=== PATIENT | female | born 1960 | race Caucasian/White ===

== ENCOUNTER 2017-12-22 17:40 | Emergency (ER) | payer BC ==
[2017-12-22] MEDS ORDERED: ONDANSETRON HCL IV 4 MG/2 ML VIAL IV ONE (18:10)
[2017-12-22] MEDS ORDERED: 0.9 % SODIUM CHLORIDE 1,000 ML BAG IV ONE (18:10)
[2017-12-22 18:20] LABS: BASO % 0.8 % (0-6); EOS % 1.5 % (0-6); GRAN % 50.8 % (47-80); HEMATOCRIT 39.7 % (35.0-47.0); HEMOGLOBIN 14.1 gm/dl (11.6-16.0); LYMPH % 37.7 % (16-45); MEAN CELL VOLUME 89.4 fl (81-97); MEAN CORPUSCULAR HEMOGLOBIN 31.8 pg (27-33); MEAN CORPUSCULAR HGB CONC 35.5 g/dl (32-36); MEAN PLATELET VOLUME 13.7 fl (7.4-10.4); MONO % 9.2 % (0-9); PLATELET COUNT 136 K/uL (130-400); RED BLOOD COUNT 4.44 M/uL (3.80-5.40); RED CELL DISTRIBUTION WIDTH 18.6 % (11.5-14.5); WHITE BLOOD COUNT W/O DIFF 5.3 K/uL (4.2-12.2)
--- NOTE | 2017-12-22 18:23 | Emergency Department Record ---
History of Present Illness - General Chief complaint: Nausea, Vomiting, Diarrhea Stated complaint: NAUSEA,JAUNDICE Time Seen by Provider: 12/22/17 17:44 Source: Patient Mode of Arrival: Ambulatory Limitations: No limitations - History of Present Illness Initial comments: The patient is here due to not feeling well for about a week. She did have some lab work done by her PCP 9 days ago which did demonstrate marked liver enzyme elevation. Since she has been very nauseated and has had watery diarrhea 3-4 times a day. There is no reported fever, CP, SOB, or vomiting but the patient has had extreme fatigue. She also did fall about 5 days ago accidentally and bang the back of her head on a metal object. Since she has had a moderate MACHUCA. The patient has been on INH for 4 months due to a recent seroconversion of TB. MD complaint: Diarrhea, Nausea Onset/Timin -: Week(s) Description of Diarrhea: Water Severity: Moderate Severity scale (1-10): 7 Quality: Aching Consistency: Constant Improves with: None Worsens with: None Associated Symptoms: Nausea/vomiting - Related Data Home Medications Medication Instructions Recorded Confirmed Last Taken Atorvastatin Calcium 10 mg PO DAILY 12/22/17 12/22/17 Unknown Bupropion HCl [Bupropion Xl] 450 mg PO DAILY 12/22/17 12/22/17 Unknown Carvedilol 50 mg PO DAILY 12/22/17 12/22/17 Unknown Gabapentin [Neurontin] 600 mg PO DAILY 12/22/17 12/22/17 Unknown Hydrocodone/Acetaminophen 5 mg PO Q6H 12/22/17 12/22/17 Unknown [Hydrocodone/Acetaminophen 5mg/325mg] Ibuprofen [Ibu] 800 mg PO Q8H 12/22/17 12/22/17 Unknown Isoniazid 300 mg PO DAILY 12/22/17 12/22/17 Unknown Lorazepam [Ativan] 0.5 mg PO BID 12/22/17 12/22/17 Unknown Secukinumab [Cosentyx Pen (2 Pens)] 150 mg IM WEEKLY 12/22/17 12/22/17 Unknown Spironolactone 25 mg PO DAILY 12/22/17 12/22/17 Unknown Allergies Allergy/AdvReac Type Severity Reaction Status Date / Time No Known Drug Allergies Allergy Verified 12/22/17 17:53 Travel Screening - Travel/Exposure Within Last 30 Days Have you traveled within the last 30 days?: No Review of Systems Constitutional: Denies: Chills, Fever Eyes: Denies: Eye discharge ENT: Denies: Congestion Respiratory: Denies: Cough, Dyspnea Cardiovascular: Denies: Arrhythmia Endocrine: Reports: Fatigue Gastrointestinal: Reports: Diarrhea, Nausea. Denies: Vomiting Genitourinary: Denies: Dysuria Musculoskeletal: Denies: Arthralgia Past Medical History - SOCIAL HISTORY Smoking Status: Current some day smoker Alcohol Use: None Drug Use Detail:: Marijuana - RESPIRATORY Hx Respiratory Disorders: Yes Hx Sleep Apnea: Yes - CARDIOVASCULAR Hx Cardio Disorders: Yes Hx Abnormal EKG: Yes - NEURO Hx Neuro Disorders: No - GI Hx GI Disorders: No - Hx Genitourinary Disorders: No - ENDOCRINE Hx Endocrine Disorders: No - MUSCULOSKELETAL Hx Musculoskeletal Disorders: Yes Hx Arthritis: Yes - PSYCH Hx Psych Problems: No - HEMATOLOGY/ONCOLOGY Hx Hematology/Oncology Disorders: No Family Medical History Any Significant Family History?: No Physical Exam - General General Appearance: Alert, Oriented x3, Cooperative, No acute distress - Head Head exam: Atraumatic, Normocephalic, Normal inspection - Eye Eye exam: Normal appearance, PERRL, EOMI, Scleral icterus - ENT Throat exam: Normal inspection. negative: Tonsillar erythema, Tonsillar exudate - Neck Neck exam: Normal inspection, Full ROM. negative: Tenderness - Respiratory Respiratory exam: Normal lung sounds bilaterally. negative: Respiratory distress - Cardiovascular Cardiovascular Exam: Regular rate, Normal rhythm, Normal heart sounds - GI/Abdominal GI/Abdominal exam: Soft, Normal bowel sounds. negative: Tenderness - Extremities Extremities exam: Normal inspection, Full ROM, Normal capillary refill. negative: Tenderness - Neurological Neurological exam: Alert, Normal gait. negative: Abnormal gait, Motor sensory deficit Course Vital Signs 12/22/17 17:46 Temperature 97.7 F Pulse Rate 52 L Respiratory 20 Rate Blood Pressure 126/77 Pulse Ox 99 - Reevaluation(s) Reevaluation #1: The patient is doing better but is still having a lot of nausea and weakness. Due to the significant liver issues I did recommend admission to a larger hospital and the patient chose [facility]. I did discuss the case with Dr. Gorman and he does accept the patient for a direct admission. 12/22/17 20:45 Medical Decision Making - Data Complexity MDM Data: Labs Ordered and/or Reviewed, X-Ray Ordered and/or Reviewed - Lab Data Result diagrams: 12/22/17 17:58 12/22/17 17:58 - Radiology Data Radiology results: Report reviewed (Head CT: Neg Abd CT: Neg for acute changes. There is a mass at the cervix but that is known to the patient.) Disposition Disposition: Transfer Clinical Impression: Liver disorder due to infection Disposition: Acute Care Hospital Transfer Transfer To: [facility] Reason For Transfer: Liver Accepting Physician: Vita Time Discussed w/Accepting Physician: 20:46 Condition: (2) Stable Forms: Patient Portal Access Time of Disposition: 20:46 Quality - Quality Measures Quality Measures: N/A - Blood Pressure Screening View Details: Yes Does Patient Have Any of the Following: No Blood Pressure Classification: Pre-Hypertensive BP Reading Systolic Measurement: 126 Diastolic Measurement: 77 Screening for High Blood Pressure: < Pre-Hypertensive BP, F/U Documented > [ [id number]] Pre-Hypertensive Follow-up Interventions: Referral to alternative/primary care provider.
[2017-12-22 18:33] LABS: BLOOD UREA NITROGEN 10 mg/dL (6-20); CREATININE 0.5 mg/dL (0.5-0.9); EST GLOMERULAR FILTRATION RATE > 60 mL/min; INR 1.3; PARTIAL THROMBOPLASTIN TIME 30.5 SECONDS (24.5-39.1); PROTHROMBIN TIME (PATIENT) 13.8 SECONDS (9.5-12.1)
[2017-12-22 18:34] LABS: TOTAL PROTEIN 6.9 g/dL (6.6-8.7)
[2017-12-22 18:36] LABS: GLUCOSE,RANDOM 120 mg/dL (74-109)
[2017-12-22 18:39] LABS: ALBUMIN 3.8 g/dL (4.0-5.0); ALKALINE PHOSPHATASE 363 U/L (35-104); BILIRUBIN,DIRECT 4.7 mg/dL (0-0.3); LIPASE 72 U/L (13-60)
[2017-12-22 18:40] LABS: URINE APPEARANCE CLEAR; URINE BILIRUBIN LARGE (NEGATIVE); URINE BLOOD TRACE-I (NEGATIVE); URINE GLUCOSE (UA) NEGATIVE (NEGATIVE); URINE KETONE NEGATIVE (NEGATIVE); URINE LEUKOCYTE ESTERASE NEGATIVE (NEGATIVE); URINE NITRITE NEGATIVE (NEGATIVE); URINE PROTEIN TRACE (NEGATIVE); URINE UROBILINOGEN >=8.0 E.U./dL (0.20 - 1.00)
[2017-12-22 18:42] LABS: URINE COLOR DARK YELLOW
[2017-12-22 18:52] LABS: URINE AMORPHOUS SEDIMENT FEW; URINE BACTERIA FEW; URINE RBC 0 - 2 (NONE SEEN); URINE WBC 0 - 2 (0-2/hpf)
[2017-12-22 18:54] LABS: ALT/SGPT 1340 U/L (<33); AST/SGOT 1251 U/L (10.0-35.0)
[2017-12-22] MEDS ORDERED: ONDANSETRON HCL IV 4 MG/2 ML VIAL IVP ONE (19:41)
[2017-12-22] MEDS ORDERED: MAGNESIUM HYDROXIDE/AL HYDROX 30 ML, LIDOCAINE VISC 2% 200 MG PO ONE ×2 (20:20)
--- NOTE | 2017-12-23 10:33 | CT SCAN REPORT ---
EXAM: CT OF THE HEAD WITHOUT CONTRAST HISTORY: HEADACHE FOR FIVE DAYS. TECHNIQUE: Routine noncontrast CT images of the head were obtained. FINDINGS: The ventricles, basal cisterns, and sulci are of normal size, shape and configuration. No midline shift or mass effect. The tomlinson white differentiation is well maintained throughout both cerebral hemispheres. No evidence for acute ischemia. No intracranial mass or hemorrhage. There is mild scattered paranasal sinus mucosal thickening. IMPRESSION: 1. NO ACUTE INTRACRANIAL ABNORMALITY. 2. MILD SCATTERED SINUSITIS. JOB NUMBER: [id number] [facility]
--- NOTE | 2017-12-23 10:42 | CT SCAN REPORT ---
EXAM: CT OF THE ABDOMEN AND PELVIS WITH CONTRAST HISTORY: UPPER ABDOMINAL PAIN. FALL FIVE DAYS PRIOR. NAUSEA. TECHNIQUE: Routine CT images of the abdomen and pelvis were obtained following intravenous administration of contrast. The amount and type of contrast are located in the medical record. FINDINGS: The visualized lung bases are unremarkable. The liver, gallbladder, pancreas, spleen, and adrenal glands are unremarkable. The kidneys enhance and excrete contrast normally. There is a small 1 mm right intrarenal calculus. No ureteral calculus or hydronephrosis. There is colonic diverticulosis without CT evidence of diverticulitis. The appendix has a normal CT appearance. The bowel is normal in caliber. No gastrointestinal wall thickening. The uterus is surgically absent. There appears to be a soft tissue density mass measuring 5.8 x 5.2 cm of uncertain significance. This could be further assessed with pelvic ultrasound. The bladder is unremarkable. The aorta demonstrates atherosclerotic calcification. No aneurysmal dilation. No abdominal or pelvic lymphadenopathy. No free air or free fluid. Fat containing ventral wall hernia and right inguinal hernia. No acute osseous abnormality. There is scattered moderate facet hypertrophy lower lumbar spine. Degenerative changes sacroiliac joints. IMPRESSION: 1. NO CONVINCING ACUTE PROCESS WITHIN THE ABDOMEN OR PELVIS. 2. TINY NONOBSTRUCTING RIGHT INTRARENAL CALCULUS. 3. COLONIC DIVERTICULOSIS. 4. PREVIOUS HYSTERECTOMY. SOFT TISSUE DENSITY MASS MEASURING 5.8 CM SLIGHTLY EXCENTRIC TO THE LEFT OF MIDLINE. UNCERTAIN IF THIS RELATES TO RESIDUAL CERVIX. PLEASE CORRELATE CLINICALLY. PELVIC ULTRASOUND MAY BE HELPFUL FOR FURTHER ASSESSMENT. 5. FAT CONTAINING VENTRAL WALL AND RIGHT INGUINAL HERNIAS. JOB NUMBER: [id number] [facility]
== END 2017-12-22 21:21 | disposition short-term general hospital (02) ==
LOC: ER 17:40
DX: K76.9 Liver disease, unspecified (principal); R94.5 Abnormal results of liver function studies; R53.1 Weakness; R51 Headache; R11.2 Nausea with vomiting, unspecified; R19.7 Diarrhea, unspecified; R53.83 Other fatigue; F17.210 Nicotine dependence, cigarettes, uncomplicated
CPT/HCPCS: 99284 ×2; 96376; 96374; 83690; 85025; 85730; 85610; 80076; 80048; 81001; 70450; 74177; Q9967; J2405; J7030